=== PATIENT | female | born 1965 | race Two or more races ===

== ENCOUNTER 2024-05-06 15:05 | Outpatient (AMB) | payer OTHER, SELFPAY ==
[2024-05-06 15:30] VITALS: BP 121/73; PULSE 70; RESP 18; TEMP 36.1; O2SAT 96; BMI 34.1
--- NOTE | 2024-05-06 15:30 | PD.ORTHCLVIS ---
Vital signs 05/06/24 15:30 Height 1.6 m Height Method Stated Weight 87.317 kg Weight Measurement Method Standing Scale BMI 34.1 BP 121/73 Blood Pressure Source Automatic Cuff Blood Pressure Location Right Upper Arm Position Sitting Respiration 18 Pulse 70 Pulse Source Monitor Temp 97.0 F Temp Source Temporal Artery Scan Pulse Oximetry (%) 96 Oxygen Delivery Method Room Air Med/Allergies Allergies & Medications Allergies No Known Allergies Allergy (Verified 05/06/24 15:43) Medication Reconciliation ibuprofen 600 mg tablet 600 mg PO TID PRN Pain (Scale Score 4-6) 11/20/23 [History Confirmed 05/06/24] meloxicam 7.5 mg tablet 7.5 mg PO BID 11/20/23 [History Confirmed 05/06/24] diclofenac sodium 1 % topical gel 4 g topical QID #100 grams 05/06/24 [Rx] meloxicam 7.5 mg tablet 7.5 mg PO QDAY #45 tabs 05/06/24 [Rx Confirmed 05/06/24] Subjective Visit Visit for: follow up visit, knee and injections Immunization / Flu Flu Vaccine in the Last 12 Months: No Flu Vaccine Exclusion Criteria: No Exclusion Criteria History of Present Illness Chief complaint: Bilateral knee pain Dulce is a pleasant 58-year-old female with bilateral knee pain and bilateral knee osteoarthritis. She is did well with a left knee cortisone injection 3 months ago. She reports that the injection started to wear off. She reports her right knee pain and she hurts more. She does have an x-ray in the past. She would like bilateral knee injections today. The last knee injection was lasted 3 months Personal History Red flag PMH: smoker (NON SMOKER ) Pain Pain level (0-10): 4 Pain duration: CONSTANT Pain location: anterior and posterior Pain quality: sharp, dull, aching and other (specify) (SWELLING ) Pain timing: increases with activity and stairs Associated signs & symptoms: none Ambulatory data Ambulatory device: none Treatments Improvement with previous injections: No Improvement with PT: No Improvement with NSAIDS: no Review of Systems Review of Systems: All systems negative unless otherwise noted in HPI. Exam Exam Patient is in no acute distress and is cooperative with the examination today. Breathing is nonlabored. In no respiratory distress. Bilateral extremities were evaluated and demonstrates sensation intact to light touch. Palpable pedal pulses are present. No significant edema is present. Bilateral hips were examined. The patient has no pain with log roll of the hips. Internal rotation to 30 degrees and external rotation to 30 degrees is painless. Negative FADIR. The left knee was examined. The left knee is in [varus] alignment. Range of motion from [0-115] degrees. Knee is stable to varus and valgus as well as AP translation with <5mm. Patient has a [negative] McMurrays. There is [no] pain with patellofemoral compression and [no] crepitus noted. The knee is [tender] to palpation [medially]. The right knee was also examined. The right knee is in [varus] alignment. Range of motion from [0-120] degrees. Knee is stable to varus and valgus as well as AP translation with <5mm. Patient has a [negative] McMurrays. There is [no] pain with patellofemoral compression and [no] crepitus noted. The knee is [tender] to palpation [medially]. Assessment and Plan Problem List (1) Arthritis of both knees: Status: Acute Plan: 58-year-old female with bilateral knee osteoarthritis. We discussed nonoperative operative options. It is a little early for a cortisone injection today. We will thus try meloxicam. We can give her an injection in 1 month if needed (2) Unilateral primary osteoarthritis, left knee: Status: Acute Office Procedures GNS Level of Care Nursing/Assessment Patient Status: Established Patient Nursing Assessment/Reassesment: Medication Reconciliation, Update PMH in EMR and Vital Signs Coordination of Care: Complex Care and Chronic Disease 1-5, Education Complex Pt/Fam, Consent,records obtained, informed consent, Results/Orders obtained and Staff clarify orders Special Needs: Language special needs Established Patient Charge Established Patient Point Assignment: 95 Established Patient Point Charge: EP Level 3 (80-115) Past Medical History Past Medical History Have you ever been diagnosed with any of the following: Neurological Problems Seizures: No Cardiology Problems Congestive Heart Failure: No Respiratory Problems Chronic Obstructive Pulmonary Disease (COPD): No Smoking: No Smoking Exposure: No Stomache/Intestinal Problems Hepatitis: No Gall Bladder Disease: Yes (HAD SURGERY) Gastroesophageal Reflux Disease: Yes Genital/Urinary Problems Renal Disease: No Reproductive Problems Previous Pregnancies: Yes (X4) Musculoskeletal Problems Arthritis: Yes Fractures: Yes (RIGHT WRIST- CASTED) Head,Eye,Nose,Throat Problems Cataracts: Yes (BILATERAL. NO LENS IMPLANT) Endocrine Problems Diabetes Mellitus Type 1: No Diabetes Mellitus Type 2: No Other Problems Falls: No Blood Transfusions: No Blood Transfusion Reaction: No Anesthesia Reactions: No MRSA: No Cancer: No
== END 2024-05-06 15:46 | disposition home or self-care (01) ==
LOC: HODSRG 15:05
PROVIDERS: PCP Internal Medicine; Referring Provider Internal Medicine; Supervising Provider Orthopaedic Surgery Adult Reconstructive Orthopaedic Surgery; Visit Provider Orthopaedic Surgery Adult Reconstructive Orthopaedic Surgery
DX: M17.0 Bilateral primary osteoarthritis of knee (principal); K21.9 Gastro-esophageal reflux disease without esophagitis
CPT/HCPCS: 99213; G0463

== ENCOUNTER 2024-05-27 15:04 | Outpatient (AMB) | payer OTHER, SELFPAY ==
[2024-05-27 15:22] VITALS: BP 131/83; PULSE 69; RESP 18; TEMP 36.4; O2SAT 97; BMI 34.1
--- NOTE | 2024-05-27 15:22 | PD.ORTHCLVIS ---
Vital signs 05/27/24 15:22 Height 1.6 m Height Method Stated Weight 87.288 kg Weight Measurement Method Standing Scale BMI 34.1 BP 131/83 H Blood Pressure Source Automatic Cuff Blood Pressure Location Right Upper Arm Position Sitting Respiration 18 Pulse 69 Pulse Source Monitor Temp 97.6 F Temp Source Temporal Artery Scan Pulse Oximetry (%) 97 Oxygen Delivery Method Room Air Med/Allergies Allergies & Medications Allergies No Known Allergies Allergy (Verified 05/27/24 15:23) Medication Reconciliation ibuprofen 600 mg tablet 600 mg PO TID PRN Pain (Scale Score 4-6) 11/20/23 [History Confirmed 05/27/24] meloxicam 7.5 mg tablet 7.5 mg PO BID 11/20/23 [History Confirmed 05/27/24] diclofenac sodium 1 % topical gel 4 g topical QID #100 grams 05/06/24 [Rx Confirmed 05/27/24] meloxicam 7.5 mg tablet 7.5 mg PO QDAY #45 tabs 05/06/24 [Rx Confirmed 05/27/24] Subjective Visit Visit for: follow up visit, knee and injections Immunization / Flu Flu Vaccine in the Last 12 Months: No Flu Vaccine Exclusion Criteria: No Exclusion Criteria History of Present Illness Chief complaint: F/U KNEE INJECTIONS Dulce is a pleasant 58-year-old female with bilateral knee pain and bilateral knee osteoarthritis. She is did well with a left knee cortisone injection 3 months ago. She reports that the injection started to wear off. She reports her right knee pain and she hurts more. She does have an x-ray in the past. She would like bilateral knee injections today. The last knee injection was lasted 3 months Personal History Red flag PMH: smoker (NON SMOKER ) Pain Pain level (0-10): 10 Pain duration: ALL DAY Pain location: inside (medial), outside (lateral), anterior and posterior Pain quality: sharp, dull and aching Pain timing: increases with activity Associated signs & symptoms: numbness, weakness and stiffness Ambulatory data Ambulatory device: none Treatments Improvement with previous injections: No Improvement with PT: No Improvement with NSAIDS: n/a Review of Systems Review of Systems: All systems negative unless otherwise noted in HPI. Exam Exam Patient is in no acute distress and is cooperative with the examination today. Breathing is nonlabored. In no respiratory distress. Bilateral extremities were evaluated and demonstrates sensation intact to light touch. Palpable pedal pulses are present. No significant edema is present. Bilateral hips were examined. The patient has no pain with log roll of the hips. Internal rotation to 30 degrees and external rotation to 30 degrees is painless. Negative FADIR. The left knee was examined. The left knee is in [varus] alignment. Range of motion from [0-115] degrees. Knee is stable to varus and valgus as well as AP translation with <5mm. Patient has a [negative] McMurrays. There is [no] pain with patellofemoral compression and [no] crepitus noted. The knee is [tender] to palpation [medially]. The right knee was also examined. The right knee is in [varus] alignment. Range of motion from [0-120] degrees. Knee is stable to varus and valgus as well as AP translation with <5mm. Patient has a [negative] McMurrays. There is [no] pain with patellofemoral compression and [no] crepitus noted. The knee is [tender] to palpation [medially]. Assessment and Plan Problem List (1) Arthritis of both knees: Status: Acute Plan: 58-year-old female with bilateral knee osteoarthritis. We discussed nonoperative operative options. It is a little early for a cortisone injection today. She would like to repeat cortisone injections as the last ones did very well. Recommend knee cortisone injections as patient would like to proceed with conservative treatment at this time. The risks and benefits of the procedure were reviewed with the patient and patient gave verbal consent to continue with the procedure. Procedure: performed by Dr. Martinez Using sterile technique the Bilateral knees were thoroughly prepped with alcohol, and approximately 1 cc of Kenalog 40 mg/mL and 4 cc of 1% lidocaine was injected into each knee without resistance into the medial tibial femoral joint space. The patient tolerated the procedure. (2) Unilateral primary osteoarthritis, left knee: Status: Acute Office Procedures GNS Level of Care Nursing/Assessment Patient Status: Established Patient Nursing Assessment/Reassesment: Medication Reconciliation, Update PMH in EMR and Vital Signs Coordination of Care: Complex Care and Chronic Disease 1-5, Education Complex Pt/Fam, Consent,records obtained, informed consent, Results/Orders obtained and Staff clarify orders Special Needs: Language special needs Established Patient Charge Established Patient Point Assignment: 95 Established Patient Point Charge: EP Level 3 (80-115) Surgical Proc/IM SQ injection Major Surgical Procedure: Yes (bilateral knee injection ) Medication Given Medication Given Medication Given: Yes Documented Dose Given: 8 Route: Infiitration Medication Given Medication Given Medication Given: Yes Documented Dose Given: 2 Route: Infiitration Office Meds Xylocaine 10 mg/mL (1 %) injection solution Performing Provider: Demetrius Martinez MD Performing Location: [facility] Administered by: Demetrius Martinez MD on 05/27/24 15:53 Dose Route Admin Location Dispensed Lot Number Expiration Date [facility] Lead Manufacturing Engineer 20 mL Infiltration 20 mL [id number] [employer] triamcinolone acetonide 40 mg/mL suspension for injection Performing Provider: Demetrius Martinez MD Performing Location: [facility] Administered by: Demetrius Martinez MD on 05/27/24 15:53 Dose Route Admin Location Dispensed Lot Number Expiration Date [facility] Lead Manufacturing Engineer 40 mg intra-articular 1 mL [id number] [employer] Past Medical History Past Medical History Have you ever been diagnosed with any of the following: Neurological Problems Seizures: No Cardiology Problems Congestive Heart Failure: No Respiratory Problems Chronic Obstructive Pulmonary Disease (COPD): No Smoking: No Smoking Exposure: No Stomache/Intestinal Problems Hepatitis: No Gall Bladder Disease: Yes (HAD SURGERY) Gastroesophageal Reflux Disease: Yes Genital/Urinary Problems Renal Disease: No Reproductive Problems Previous Pregnancies: Yes (X4) Musculoskeletal Problems Arthritis: Yes Fractures: Yes (RIGHT WRIST- CASTED) Head,Eye,Nose,Throat Problems Cataracts: Yes (BILATERAL. NO LENS IMPLANT) Endocrine Problems Diabetes Mellitus Type 1: No Diabetes Mellitus Type 2: No Other Problems Falls: No Blood Transfusions: No Blood Transfusion Reaction: No Anesthesia Reactions: No MRSA: No Cancer: No
== END 2024-05-27 15:48 | disposition home or self-care (01) ==
LOC: HODSRG 15:04
PROVIDERS: PCP Internal Medicine; Referring Provider Internal Medicine; Supervising Provider Orthopaedic Surgery Adult Reconstructive Orthopaedic Surgery; Visit Provider Orthopaedic Surgery Adult Reconstructive Orthopaedic Surgery
DX: M17.0 Bilateral primary osteoarthritis of knee (principal)
CPT/HCPCS: 20610; 99213; J3301; J3490; G0463

== ENCOUNTER 2024-08-21 14:15 | Outpatient (AMB) | payer OTHER, SELFPAY ==
[2024-08-21 14:28] VITALS: BP 146/95; PULSE 75; RESP 18; TEMP 36.4; O2SAT 98; BMI 34.7
--- NOTE | 2024-08-21 14:28 | PD.ORTHCLVIS ---
Vital signs 08/21/24 14:28 Height 1.6 m Height Method Stated Weight 88.989 kg Weight Measurement Method Standing Scale BMI 34.7 BP 146/95 H Blood Pressure Source Automatic Cuff Blood Pressure Location Right Upper Arm Position Sitting Respiration 18 Pulse 75 Pulse Source Monitor Temp 97.5 F Temp Source Temporal Artery Scan Pulse Oximetry (%) 98 Oxygen Delivery Method Room Air Med/Allergies Allergies & Medications Allergies No Known Allergies Allergy (Verified 08/21/24 14:29) Medication Reconciliation ibuprofen 600 mg tablet 600 mg PO TID PRN Pain (Scale Score 4-6) 11/20/23 [History Confirmed 08/21/24] meloxicam 7.5 mg tablet 7.5 mg PO BID 11/20/23 [History Confirmed 08/21/24] diclofenac sodium 1 % topical gel 4 g topical QID #100 grams 05/06/24 [Rx Confirmed 08/21/24] meloxicam 7.5 mg tablet 7.5 mg PO QDAY #45 tabs 05/06/24 [Rx Confirmed 08/21/24] diclofenac sodium 1 % topical gel 4 g topical QID #100 grams 06/09/24 [Rx Confirmed 08/21/24] meloxicam 7.5 mg tablet 7.5 mg PO QDAY #30 tabs 08/21/24 [Rx] Exam Exam Patient is in no acute distress and is cooperative with the examination today. Breathing is nonlabored. In no respiratory distress. Bilateral extremities were evaluated and demonstrates sensation intact to light touch. Palpable pedal pulses are present. No significant edema is present. Bilateral hips were examined. The patient has no pain with log roll of the hips. Internal rotation to 30 degrees and external rotation to 30 degrees is painless. Negative FADIR. The left knee was examined. The left knee is in [varus] alignment. Range of motion from [0-115] degrees. Knee is stable to varus and valgus as well as AP translation with <5mm. Patient has a [negative] McMurrays. There is [no] pain with patellofemoral compression and [no] crepitus noted. The knee is [tender] to palpation [medially]. The right knee was also examined. The right knee is in [varus] alignment. Range of motion from [0-120] degrees. Knee is stable to varus and valgus as well as AP translation with <5mm. Patient has a [negative] McMurrays. There is [no] pain with patellofemoral compression and [no] crepitus noted. The knee is [tender] to palpation [medially]. X-rays from 2022 reviewed. Demonstrates moderate joint space narrowing medially Assessment and Plan Problem List (1) Arthritis of both knees: Status: Acute Plan: 58-year-old female with bilateral knee osteoarthritis. We discussed nonoperative operative options. Patient would like to try repeat cortisone injections. Her last x-rays were over 2 years old. We will get new x-rays Recommend knee cortisone injections as patient would like to proceed with conservative treatment at this time. The risks and benefits of the procedure were reviewed with the patient and patient gave verbal consent to continue with the procedure. Procedure: performed by Dr. Martinez Using sterile technique the Bilateral knees were thoroughly prepped with alcohol, and approximately 1 cc of Kenalog 40 mg/mL and 4 cc of 1% lidocaine was injected into each knee without resistance into the medial tibial femoral joint space. The patient tolerated the procedure. (2) Unilateral primary osteoarthritis, left knee: Status: Acute Office Procedures GNS Level of Care Nursing/Assessment Patient Status: Established Patient Nursing Assessment/Reassesment: Medication Reconciliation, Update PMH in EMR and Vital Signs Coordination of Care: Complex Care and Chronic Disease 1-5, Education Complex Pt/Fam, Consent,records obtained, informed consent, Results/Orders obtained and Staff clarify orders Established Patient Charge Established Patient Point Assignment: 95 Established Patient Point Charge: EP Level 3 (80-115) Surgical Proc/IM SQ injection Major Surgical Procedure: Yes (BILATERAL KNEE INJECTIONS ) Medication Given Medication Given Medication Given: Yes Documented Dose Given: 8 Route: Infiitration Medication Given Medication Given Medication Given: Yes Documented Dose Given: 2 Route: Infiitration Office Meds Xylocaine 10 mg/mL (1 %) injection solution Performing Provider: Demetrius Martinez MD Performing Location: [facility] Administered by: Demetrius Martinez MD on 08/21/24 14:38 Dose Route Admin Location Dispensed Lot Number Expiration Date [facility] Chairperson Anesthesiology 40 mL Infiltration 40 mL [id number] [facility] triamcinolone acetonide 40 mg/mL suspension for injection Performing Provider: Demetrius Martinez MD Performing Location: [facility] Administered by: Demetrius Martinez MD on 08/21/24 14:38 Dose Route Admin Location Dispensed Lot Number Expiration Date [employer] Chairperson Anesthesiology 80 mg intra-articular KNEES 2 mL [id number] [employer] MA Intake Visit Data Collection New Patient or Established: Established Patient (seen at [facility] within 3 years) Reason for Visit:: KNEE INJECTION Seen by Clinical Staff ONLY (RN/MA): No Physical Chemist Required: Yes PCP or OBGYN visit in last 3 months: Yes Hx Now: No Do You Feel Safe at Home: Yes Authorities Contacted: N/A Questionairres Past Medical History Past Medical History Have you ever been diagnosed with any of the following: Neurological Problems Seizures: No Cardiology Problems Congestive Heart Failure: No Respiratory Problems Chronic Obstructive Pulmonary Disease (COPD): No Smoking: No Smoking Exposure: No Stomache/Intestinal Problems Hepatitis: No Gall Bladder Disease: Yes (HAD SURGERY) Gastroesophageal Reflux Disease: Yes Genital/Urinary Problems Renal Disease: No Reproductive Problems Previous Pregnancies: Yes (X4) Musculoskeletal Problems Arthritis: Yes Fractures: Yes (RIGHT WRIST- CASTED) Head,Eye,Nose,Throat Problems Cataracts: Yes (BILATERAL. NO LENS IMPLANT) Endocrine Problems Diabetes Mellitus Type 1: No Diabetes Mellitus Type 2: No Other Problems Falls: No Blood Transfusions: No Blood Transfusion Reaction: No Anesthesia Reactions: No MRSA: No Cancer: No Subjective Visit Visit for: follow up visit, knee, x-rays and injections Immunization / Flu Flu Vaccine in the Last 12 Months: No Flu Vaccine Exclusion Criteria: No Exclusion Criteria History of Present Illness Chief complaint: Bilateral knee pain Elisa is a pleasant 59-year-old female with bilateral knee pain and bilateral knee arthritis. We have done cortisone injections in the past. The used to work but her not working as much now. She does have a posterior horn the medial meniscus tear. In addition, she does have knee arthritis. The last x-rays were over 2 years old. Personal History Occupation: [employer] Pain Pain level (0-10): 10 Pain duration: ALL DAY Pain location: inside (medial), outside (lateral), anterior and posterior Pain quality: sharp, dull and aching Pain timing: increases with activity Associated signs & symptoms: numbness, weakness and stiffness Ambulatory data Ambulatory device: none Treatments Improvement with previous injections: No Improvement with PT: No Improvement with NSAIDS: no Review of Systems Review of Systems: All systems negative unless otherwise noted in HPI.
== END 2024-08-21 14:52 | disposition home or self-care (01) ==
LOC: HODSRG 14:15
PROVIDERS: PCP Internal Medicine; Referring Provider Internal Medicine; Supervising Provider Orthopaedic Surgery Adult Reconstructive Orthopaedic Surgery; Visit Provider Orthopaedic Surgery Adult Reconstructive Orthopaedic Surgery
DX: M17.0 Bilateral primary osteoarthritis of knee (principal); M25.562 Pain in left knee; M25.561 Pain in right knee; S83.249D Other tear of medial meniscus, current injury, unspecified knee, subsequent encounter; X58.XXXD Exposure to other specified factors, subsequent encounter
CPT/HCPCS: 20610; 99213; J3301; J3490; G0463

== ENCOUNTER → 2024-08-21 | Outpatient (CLI) | payer OTHER, SELFPAY ==
--- NOTE | 2024-08-21 15:33 | XR_ITS ---
Examination: Bilateral AP knees 2 views Right lateral knee left lateral knee 2 views Bilateral axial knees single view TECHNIQUE: Bilateral AP knees standing single view Bilateral PA knees standing single view 30 degrees flexion Standing right lateral knee left lateral knee 2 views Bilateral axial knees single view total 5 views Exam date and time: August 21, 2024 1628 hours INDICATIONS: Patient fell 3 months ago with injury to both knees, bilateral knee pain. FINDINGS: Severe osteopenia Moderate narrowing medial joint space right knee Moderate to advanced narrowing medial joint space left knee No fracture No patellar dislocation IMPRESSION: Moderate narrowing medial joint space right knee Moderate to advanced narrowing medial joint space left knee
== END | disposition home or self-care (01) ==
PROVIDERS: PCP Orthopaedic Surgery Adult Reconstructive Orthopaedic Surgery; Referring Provider Orthopaedic Surgery Adult Reconstructive Orthopaedic Surgery; Visit Provider Orthopaedic Surgery Adult Reconstructive Orthopaedic Surgery
DX: M25.862 Other specified joint disorders, left knee (principal); M25.861 Other specified joint disorders, right knee
CPT/HCPCS: 73564

== ENCOUNTER 2024-09-09 10:40 | Outpatient (AMB) | payer OTHER, SELFPAY ==
--- NOTE | 2024-09-09 11:04 | PD.ORTHCLVIS ---
Vital signs 09/09/24 11:06 Height 1.6 m Height Method Stated Weight 86.268 kg Weight Measurement Method Standing Scale BMI 33.7 BP 139/86 H Blood Pressure Source Automatic Cuff Blood Pressure Location Left Upper Arm Position Sitting Respiration 18 Pulse 18 L Pulse Source Monitor Temp 97.5 F Temp Source Temporal Artery Scan Pulse Oximetry (%) 98 Oxygen Delivery Method Room Air Med/Allergies Allergies & Medications Allergies No Known Allergies Allergy (Verified 09/09/24 11:11) Medication Reconciliation ibuprofen 600 mg tablet 600 mg PO TID PRN Pain (Scale Score 4-6) 11/20/23 [History Confirmed 09/09/24] meloxicam 7.5 mg tablet 7.5 mg PO BID 11/20/23 [History Confirmed 09/09/24] diclofenac sodium 1 % topical gel 4 g topical QID #100 grams 05/06/24 [Rx Confirmed 09/09/24] meloxicam 7.5 mg tablet 7.5 mg PO QDAY #45 tabs 05/06/24 [Rx Confirmed 09/09/24] diclofenac sodium 1 % topical gel 4 g topical QID #100 grams 06/09/24 [Rx Confirmed 09/09/24] meloxicam 7.5 mg tablet 7.5 mg PO QDAY #30 tabs 08/21/24 [Rx Confirmed 09/09/24] Exam Exam Patient is in no acute distress and is cooperative with the examination today. Breathing is nonlabored. In no respiratory distress. Bilateral extremities were evaluated and demonstrates sensation intact to light touch. Palpable pedal pulses are present. No significant edema is present. Bilateral hips were examined. The patient has no pain with log roll of the hips. Internal rotation to 30 degrees and external rotation to 30 degrees is painless. Negative FADIR. The left knee was examined. The left knee is in [varus] alignment. Range of motion from [0-115] degrees. Knee is stable to varus and valgus as well as AP translation with <5mm. Patient has a [negative] McMurrays. There is [no] pain with patellofemoral compression and [no] crepitus noted. The knee is [tender] to palpation [medially]. The right knee was also examined. The right knee is in [varus] alignment. Range of motion from [0-120] degrees. Knee is stable to varus and valgus as well as AP translation with <5mm. Patient has a [negative] McMurrays. There is [no] pain with patellofemoral compression and [no] crepitus noted. The knee is [tender] to palpation [medially]. X-rays from 2022 reviewed. Demonstrates moderate joint space narrowing medially Assessment and Plan Problem List (1) Arthritis of both knees: Status: Acute Plan: 58-year-old female with bilateral knee osteoarthritis. We discussed nonoperative and operative options. Given that she is failed conservative treatment with cortisone injections, we can try hyaluronic acid injections before surgery. Her new x-rays demonstrate moderate to advanced arthritis of the left knee with Narrowing of the medial joint space We will see her back if we can get authorization for Hyaluronic acid injections (2) Unilateral primary osteoarthritis, left knee: Status: Acute Office Procedures GNS Level of Care Nursing/Assessment Patient Status: Established Patient Nursing Assessment/Reassesment: Medication Reconciliation, Update PMH in EMR and Vital Signs Coordination of Care: Complex Care and Chronic Disease 1-5, Education Complex Pt/Fam, Consent,records obtained, informed consent, Results/Orders obtained and Staff clarify orders Special Needs: Language special needs Established Patient Charge Established Patient Point Assignment: 95 Established Patient Point Charge: EP Level 3 (80-115) MA Intake Visit Data Collection New Patient or Established: Established Patient (seen at [facility] within 3 years) Reason for Visit:: F/U INJECTION Seen by Clinical Staff ONLY (RN/MA): No Verbal consent obtained for Telemed visit?: No 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 PCP or OBGYN visit in last 3 months: No Hx Now: Yes Do You Feel Safe at Home: Yes Authorities Contacted: N/A Questionairres Past Medical History Past Medical History Have you ever been diagnosed with any of the following: Neurological Problems Seizures: No Cardiology Problems Congestive Heart Failure: No Respiratory Problems Chronic Obstructive Pulmonary Disease (COPD): No Smoking: No Smoking Exposure: No Stomache/Intestinal Problems Hepatitis: No Gall Bladder Disease: Yes (HAD SURGERY) Gastroesophageal Reflux Disease: Yes Genital/Urinary Problems Renal Disease: No Reproductive Problems Previous Pregnancies: Yes (X4) Musculoskeletal Problems Arthritis: Yes Fractures: Yes (RIGHT WRIST- CASTED) Head,Eye,Nose,Throat Problems Cataracts: Yes (BILATERAL. NO LENS IMPLANT) Endocrine Problems Diabetes Mellitus Type 1: No Diabetes Mellitus Type 2: No Other Problems Falls: No Blood Transfusions: No Blood Transfusion Reaction: No Anesthesia Reactions: No MRSA: No Cancer: No Subjective Visit Visit for: follow up visit and knee Immunization / Flu Flu Vaccine in the Last 12 Months: No Flu Vaccine Exclusion Criteria: No Exclusion Criteria History of Present Illness Chief complaint: F/U KNEE INJECTION & XRAYS Elisa is a pleasant 59-year-old female with bilateral knee pain and bilateral knee arthritis. We have done cortisone injections in the past. The last injections did not help for very long. She would like to try different injection today. We would like to get authorization for hyaluronic acid injections Personal History Occupation: [employer] Pain Pain level (0-10): 9 Pain duration: ALL DAYS Pain location: inside (medial), outside (lateral) and anterior Pain quality: sharp, dull and aching Pain timing: increases with activity Associated signs & symptoms: numbness, weakness and stiffness Ambulatory data Ambulatory device: other (specify) (BRACE) Treatments Improvement with previous injections: No Improvement with PT: No Improvement with NSAIDS: no Review of Systems Review of Systems: All systems negative unless otherwise noted in HPI.
[2024-09-09 11:06] VITALS: BP 139/86; PULSE 18; RESP 18; TEMP 36.4; O2SAT 98; BMI 33.7
== END 2024-09-09 11:32 | disposition home or self-care (01) ==
PROVIDERS: PCP Internal Medicine; Referring Provider Internal Medicine; Supervising Provider Orthopaedic Surgery Adult Reconstructive Orthopaedic Surgery; Visit Provider Orthopaedic Surgery Adult Reconstructive Orthopaedic Surgery
DX: M17.0 Bilateral primary osteoarthritis of knee (principal)
CPT/HCPCS: 99213; G0463

== ENCOUNTER → 2024-10-31 | Outpatient (CLI) | payer OTHER, SELFPAY ==
--- NOTE | 2024-10-31 14:30 | XR_ITS ---
Examination: Screening digital mammography, bilateral Computer aided detection 3-D breast Tomosynthesis, bilateral Date and time of exam: October 31, 2024 at 1410 hours Compared to mammograms dating to February 03, 2016 Indication: Screening Technique: Nonmagnified MLO, CC views of the breasts to been obtained, reconstructed from 3-D Tomosynthesis images. R2 computer aided detection program utilized for evaluation of suspicious masses and/or abnormal calcifications. 3-D Tomosynthesis images obtained. Findings: Scattered areas of fibroglandular density. Benign calcifications. No interval suspicious masses Impression: BI-RADS category II: Benign Findings. Recommend 1 year follow-up mammogram.
== END | disposition home or self-care (01) ==
PROVIDERS: Referring Provider Internal Medicine; Visit Provider Internal Medicine
DX: Z12.31 Encounter for screening mammogram for malignant neoplasm of breast (principal); R92.323 Mammographic fibroglandular density, bilateral breasts; R92.1 Mammographic calcification found on diagnostic imaging of breast
CPT/HCPCS: 77063; 77067

== ENCOUNTER 2024-11-20 13:34 | Outpatient (AMB) | payer OTHER, SELFPAY ==
[2024-11-20 13:58] VITALS: BP 142/66; PULSE 67; RESP 18; TEMP 36.8; O2SAT 96; BMI 32.8
--- NOTE | 2024-11-20 13:58 | ORTHONT_ITS ---
Vital signs 11/20/24 13:58 Height 1.6 m Height Method Stated Weight 84.056 kg Weight Measurement Method Standing Scale BMI 32.8 BP 142/66 H Blood Pressure Source Automatic Cuff Blood Pressure Location Right Upper Arm Position Sitting Respiration 18 Pulse 67 Pulse Source Monitor Temp 98.2 F Temp Source Temporal Artery Scan Pulse Oximetry (%) 96 Oxygen Delivery Method Room Air Med/Allergies Allergies & Medications Allergies No Known Allergies Allergy (Verified 11/20/24 13:58) Medication Reconciliation ibuprofen 600 mg tablet 600 mg PO TID PRN Pain (Scale Score 4-6) 11/20/23 [History Confirmed 11/20/24] meloxicam 7.5 mg tablet 7.5 mg PO BID 11/20/23 [History Confirmed 11/20/24] diclofenac sodium 1 % topical gel 4 g topical QID #100 grams 05/06/24 [Rx Confirmed 11/20/24] meloxicam 7.5 mg tablet 7.5 mg PO QDAY #45 tabs 05/06/24 [Rx Confirmed 11/20/24] diclofenac sodium 1 % topical gel 4 g topical QID #100 grams 06/09/24 [Rx Confirmed 11/20/24] meloxicam 7.5 mg tablet 7.5 mg PO QDAY #30 tabs 08/21/24 [Rx Confirmed 11/20/24] Exam Exam Patient is in no acute distress and is cooperative with the examination today. Breathing is nonlabored. In no respiratory distress. Bilateral extremities were evaluated and demonstrates sensation intact to light touch. Palpable pedal pulses are present. No significant edema is present. Bilateral hips were examined. The patient has no pain with log roll of the hips. Internal rotation to 30 degrees and external rotation to 30 degrees is painless. Negative FADIR. The left knee was examined. The left knee is in [varus] alignment. Range of motion from [0-115] degrees. Knee is stable to varus and valgus as well as AP translation with <5mm. Patient has a [negative] McMurrays. There is [no] pain with patellofemoral compression and [no] crepitus noted. The knee is [tender] to palpation [medially]. The right knee was also examined. The right knee is in [varus] alignment. Range of motion from [0-120] degrees. Knee is stable to varus and valgus as well as AP translation with <5mm. Patient has a [negative] McMurrays. There is [no] pain with patellofemoral compression and [no] crepitus noted. The knee is [tender] to palpation [medially]. X-rays from 2022 reviewed. Demonstrates moderate joint space narrowing medially Assessment and Plan Problem List (1) Arthritis of both knees: Status: Acute Plan: 58-year-old female with bilateral knee osteoarthritis. We discussed nonoperative and operative options. Given that she is failed conservative treatment with cortisone injections, we can try hyaluronic acid injections. Recommend Hyaluronic acid injections as patient would like to proceed with conservative treatment at this time. The risks and benefits of the procedure were reviewed with the patient and patient gave verbal consent to continue with the procedure. Procedure: performed by Dr. Martinez Using sterile technique the Bilateral knees were thoroughly prepped with alcohol, and An entire syringe of Synvisc 1 was injected to each knee without resistance. 2 tubes were used total with 1 for each knee The patient tolerated the procedure. (2) Unilateral primary osteoarthritis, left knee: Status: Acute Office Procedures GNS Level of Care Nursing/Assessment Patient Status: Established Patient Nursing Assessment/Reassesment: Medication Reconciliation, Update PMH in EMR and Vital Signs Coordination of Care: Complex Care and Chronic Disease 1-5, Education Complex Pt/Fam, Consent,records obtained, informed consent, Results/Orders obtained and Staff clarify orders Special Needs: Language special needs Established Patient Charge Established Patient Point Assignment: 95 Established Patient Point Charge: EP Level 3 (80-115) Surgical Proc/IM SQ injection Major Surgical Procedure: Yes Medication Given Medication Given Medication Given: Yes Documented Dose Given: 1 Route: Infiitration Medication Given Medication Given Medication Given: Yes Documented Dose Given: 2 Route: Infiitration Office Meds Hyalgan 10 mg/mL intra-articular syringe Performing Provider: Demetrius Martinez MD Performing Location: [facility] Administered by: Demetrius Martinez MD on 11/20/24 14:18 Dose Route Admin Location Dispensed Lot Number Expiration Date NDC Pipeman 20 mg intra-articular 2 mL [id number] 07/08/27 [address]-6 Hyalgan 10 mg/mL intra-articular syringe Performing Provider: Demetrius Martinez MD Performing Location: [facility] Administered by: Demetrius Martinez MD on 11/20/24 14:18 Dose Route Admin Location Dispensed Lot Number Expiration Date [facility] Pipeman 20 mg intra-articular 2 mL [id number] 06/08/27 [id number] [place] Intake Visit Data Collection New Patient or Established: Established Patient (seen at [facility] within 3 years) Reason for Visit:: F/U 3 MONTH KNEE INJECTIONS Seen by Clinical Staff ONLY (RN/MA): No Verbal consent obtained for Telemed visit?: No 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 PCP or OBGYN visit in last 3 months: Yes Hx Now: No Do You Feel Safe at Home: Yes Authorities Contacted: N/A Questionairres Past Medical History Past Medical History Have you ever been diagnosed with any of the following: Neurological Problems Seizures: No Cardiology Problems Congestive Heart Failure: No Respiratory Problems Chronic Obstructive Pulmonary Disease (COPD): No Smoking: No Smoking Exposure: No Stomache/Intestinal Problems Hepatitis: No Gall Bladder Disease: Yes (HAD SURGERY) Gastroesophageal Reflux Disease: Yes Genital/Urinary Problems Renal Disease: No Reproductive Problems Previous Pregnancies: Yes (X4) Musculoskeletal Problems Arthritis: Yes Fractures: Yes (RIGHT WRIST- CASTED) Head,Eye,Nose,Throat Problems Cataracts: Yes (BILATERAL. NO LENS IMPLANT) Endocrine Problems Diabetes Mellitus Type 1: No Diabetes Mellitus Type 2: No Other Problems Falls: No Blood Transfusions: No Blood Transfusion Reaction: No Anesthesia Reactions: No MRSA: No Cancer: No Subjective Visit Visit for: follow up visit and knee Immunization / Flu Flu Vaccine in the Last 12 Months: No Flu Vaccine Exclusion Criteria: No Exclusion Criteria History of Present Illness Chief complaint: F/U 3 MONTH KNEE INJECTIONS Elisa is a pleasant 59-year-old female with bilateral knee pain and bilateral knee arthritis. We have done cortisone injections in the past. The last injections did not help for very long. She would like to try different injection today. She would like to try hyaluronic acid injections Personal History Occupation: [employer] Red flag PMH: BMI BMI Counceling provided: Yes Pain Pain level (0-10): 10 Pain duration: ALL DAY Pain location: inside (medial), outside (lateral), anterior and posterior Pain quality: sharp Pain timing: increases with activity Associated signs & symptoms: numbness, weakness and stiffness Ambulatory data Ambulatory device: none Treatments Improvement with previous injections: No Improvement with PT: No Improvement with NSAIDS: no Review of Systems Review of Systems: All systems negative unless otherwise noted in HPI.
== END 2024-11-20 14:10 | disposition home or self-care (01) ==
PROVIDERS: PCP Internal Medicine; Referring Provider Internal Medicine; Supervising Provider Orthopaedic Surgery Adult Reconstructive Orthopaedic Surgery; Visit Provider Orthopaedic Surgery Adult Reconstructive Orthopaedic Surgery
DX: M17.0 Bilateral primary osteoarthritis of knee (principal); M25.562 Pain in left knee; M25.561 Pain in right knee
CPT/HCPCS: 20610; 99213; G0463; J7325

== ENCOUNTER → 2025-03-13 | Outpatient (CLI) | payer OTHER, SELFPAY ==
[2025-03-13 08:54] LABS: Vitamin D 25 Hydroxy Total 33.2 ng/mL (7.3-40.2)
[2025-03-13 09:01] LABS: Alanine Aminotransferase 69 U/L (10-49); Albumin, Serum 4.1 gm/dL (3.5-5.0); Albumin/Globulin Ratio 2.3 (1.2-2.2); Alkaline Phosphatase 102 U/L (46-116); Anion Gap 11 (7-16); Aspartate Amino Transferase 34 U/L (0-34); BUN/Creatinine Ratio 26 Ratio (12-20); Bilirubin,Total 0.5 mg/dL (0.3-1.2); Blood Urea Nitrogen 18 mg/dL (9-23); Calcium 9.8 mg/dL (8.3-10.6); Calcium (Corrected) 9.8 mg/dL (8.5-10.1); Carbon Dioxide 25.2 mMol/L (20.0-31.0); Cardiac Risk Estimate 3.7 RATIO (3.7-5.6); Chloride 108 mMol/L (98-107); Cholesterol 241 mg/dL (132-200); Creatinine (Component) 0.7 mg/dL (0.6-1.3); Free T4 (Free Thyroxine) 1.22 ng/dL (0.89-1.76); Globulin 1.8 gm/dL (2.3-3.5); Glucose 119 mg/dL (74-106); HDL Cholesterol 66 mg/dL (40-60); LDL Cholesterol,Calculated 153 mg/dL (0-130); Osmolality,Calculated 289 (275-295); Potassium 4.2 mMol/L (3.4-5.1); Sodium 144 mMol/L (136-145); Thyroid Stimulating Hormone 0.63 uIU/mL (0.55-4.78); Total Protein 5.9 gm/dL (5.7-8.2); Triglycerides 112 mg/dL (30-150); eGFR > 60 See Note
[2025-03-13 09:03] LABS: Basophils # (Auto) 0.0 Thou/mm3 (0.0-0.2); Basophils % (Auto) 1 % (0-2.5); Eosinophils # (Auto) 0.1 Thou/mm3 (0.0-0.5); Eosinophils % (Auto) 1 % (0-10); Hematocrit 40.3 % (36.0-46.0); Hemoglobin 13.4 g/dL (12.0-16.0); Immature Granulocytes Auto 0.08 Thou/mm3 (0.00-0.00); Lymphocytes # (Auto) 1.2 Thou/mm3 (1.0-4.8); Lymphocytes % (Auto) 18 % (10-50); Mean Corpuscular HGB Conc 33.3 g/dl (31.0-37.0); Mean Corpuscular Hemoglobin 31.1 pg (25.0-35.0); Mean Corpuscular Volume 94 fL (80-100); Monocytes # (Auto) 0.4 Thou/mm3 (0.0-0.8); Monocytes % (Auto) 6 % (0-12); Neutrophils # (Auto) 4.7 Thou/mm3 (1.8-7.7); Neutrophils % (Auto) 73 % (37-80); Nucleated Red Blood Cell # 0.00 Thou/mm3 (0.00-0.00); Nucleated Red Blood Cell % 0 /100 WBC (0); Platelet Count 173 Thou/mm3 (140-440); RDW Standard Deviation 45.1 fL (36.4-46.3); Red Blood Count 4.31 Miln/mm3 (4.00-5.20); White Blood Count 6.4 Thou/mm3 (3.6-11.0)
[2025-03-13 09:20] LABS: Glucose Estimated Average 120 mg/dL (80-131); Hemoglobin A1C 5.8 % Hgb (4.8-6.0)
== END | disposition home or self-care (01) ==
LOC: COPL 07:16
PROVIDERS: PCP Internal Medicine; Referring Provider Internal Medicine; Visit Provider Internal Medicine
DX: Z00.00 Encounter for general adult medical examination without abnormal findings (principal)
CPT/HCPCS: 36415; 80053; 80061; 82306; 83036; 84439; 84443; 85025

== ENCOUNTER → 2025-06-30 | Outpatient (CLI) | payer BC, SELFPAY ==
--- NOTE | 2025-06-30 16:56 | XR_ITS ---
Examination: Toes, right foot 3 views Technique: Toes AP oblique lateral 3 views right foot Date and time of exam: June 30, 2025, 1700 hours INDICATIONS: Injury 3 weeks ago to the foot with fourth digit toe pain FINDINGS: Limited study, no true lateral view of the fourth digit Acute nondisplaced fracture distal aspect proximal phalanx fourth digit No foreign body or dislocation IMPRESSION: Acute nondisplaced fracture distal aspect proximal phalanx fourth digit
== END | disposition home or self-care (01) ==
LOC: CDIM 16:50
PROVIDERS: PCP Internal Medicine; Referring Provider Internal Medicine; Visit Provider Internal Medicine
DX: S92.514A Nondisplaced fracture of proximal phalanx of right lesser toe(s), initial encounter for closed fracture (principal); X58.XXXA Exposure to other specified factors, initial encounter
CPT/HCPCS: 73660